=== PATIENT | female | born 1935 | race Caucasian/White ===

== ENCOUNTER 2018-03-27 21:27 | Emergency (ER) | payer MEDICARE, OTHER ==
[~2018-03-27] VITALS: Ht 160 cm; Wt 87.3 kg
[2018-03-27 21:56] LABS: BASOPHILS # (AUTO) 0.1 X10'3 (0-0.2); BASOPHILS % (AUTO) 0.6 % (0-1); EOSINOPHILS % (AUTO) 0.4 % (0-6); HEMATOCRIT 39.2 % (35.0-45.0); LYMPHOCYTES # (AUTO) 1.1 X10'3 (1.1-4.8); LYMPHOCYTES % (AUTO) 13.5 % (21-51); MEAN CORPUSCULAR HEMOGLOBIN 30.1 PG (27.0-31.0); MEAN CORPUSCULAR HGB CONC 33.3 % (33.0-36.5); MEAN CORPUSCULAR VOLUME 90.4 FL (78-98); MEAN PLATELET VOLUME 8.8 FL (7.4-10.4); MONOCYTES # (AUTO) 0.5 X10'3 (0-0.9); MONOCYTES % (AUTO) 5.7 % (2-12); NEUTROPHILS # (AUTO) 6.8 X10'3 (1.8-7.7); NEUTROPHILS % (AUTO) 79.8 % (42-75); PLATELET COUNT 161 X10'3 (140-440); RED BLOOD COUNT 4.33 X10'6 (4.20-5.60); RED CELL DISTRIBUTION WIDTH 14.2 % (11.5-14.5); WHITE BLOOD COUNT 8.5 X10'3 (4.5-11.0)
[2018-03-27 22:10] LABS: ALANINE AMINOTRANSFERASE 28 U/L (12-78); ALBUMIN 3.6 G/DL (3.4-5.0); ALKALINE PHOSPHATASE 130 IU/L (46-116); ANION GAP 8 (8-16); ASPARTATE AMINO TRANSFERASE 17 U/L (10-37); BILIRUBIN,TOTAL 1.5 MG/DL (0.1-1.0); BLOOD UREA NITROGEN 11 MG/DL (7-18); BUN/CREATININE RATIO 7.6 (6.6-38.0); CALCIUM 8.9 MG/DL (8.5-10.1); CHLORIDE 103 MMOL/L (99-107); CREATININE 1.44 MG/DL (0.40-0.90); GLUCOSE 190 MG/DL (70-104); POTASSIUM 3.1 MMOL/L (3.5-5.1); SODIUM 139 MMOL/L (135-145); TOTAL CARBON DIOXIDE 28.2 MMOL/L (24-32); TOTAL PROTEIN 7.2 G/DL (6.4-8.2); eGFR 35 ML/MIN
[2018-03-27 22:12] LABS: PARTIAL THROMBOPLASTIN TIME 27 SECONDS (22-32); PROTHROMBIN TIME 10.3 SECONDS (9.0-12.0)
[2018-03-27 22:27] VITALS: BP 148/77
[2018-03-27] MEDS ORDERED: FURO-150 PO (22:39)
[2018-03-27] MEDS ORDERED: APIX5TAB3 PO (22:39)
[2018-03-27] MEDS ORDERED: FURO40TA4 PO (22:39)
[2018-03-27] MEDS ORDERED: LEVO100T9 PO (22:39)
[2018-03-27] MEDS ORDERED: HYDR-4069 PO (22:39)
[2018-03-27] MEDS ORDERED: AMLO2.5T2 PO (22:39)
[2018-03-27] MEDS ORDERED: MAGN400T6 PO (22:43)
[2018-03-27] MEDS ORDERED: METO25TA6 PO (22:43)
[2018-03-27] MEDS ORDERED: LORA1TAB PO (22:43)
[2018-03-27] MEDS ORDERED: PROB500T10 PO (22:43)
[2018-03-27] MEDS ORDERED: DOXA2TAB PO (22:44)
[2018-03-27] MEDS ORDERED: potassium Cl 20 mEq SR tablet PO ONE (23:15)
== END 2018-03-27 23:35 | disposition home or self-care (01) ==
LOC: ER 21:28
DX: I48.0 Paroxysmal atrial fibrillation (principal); R60.0 Localized edema; I11.0 Hypertensive heart disease with heart failure; I50.9 Heart failure, unspecified; E03.9 Hypothyroidism, unspecified; Z90.49 Acquired absence of other specified parts of digestive tract; Z90.710 Acquired absence of both cervix and uterus; Z79.899 Other long term (current) drug therapy
CPT/HCPCS: 36415; 71045; 80053; 83735; 84484; 85025; 85610; 85730; 93005; 99285